=== PATIENT | male | born 1970 | race Two or more races ===

== ENCOUNTER 2019-09-12 05:26 | Emergency (ER) | payer SELFPAY ==
[~2019-09-12] VITALS: Ht 182.9 cm; Wt 172.4 kg
[2019-09-12] MEDS ORDERED: ACETAMINOPHEN 500 MG TAB PO ONE (05:45)
[2019-09-12 06:43] VITALS: BP 147/87
[2019-09-12] MEDS ORDERED: KETOROLAC TROMETH 60MG/2ML VIAL IM ONE (07:00)
== END 2019-09-12 07:55 | disposition home or self-care (01) ==
LOC: EDBD 05:26 → ER 05:26
DX: S39.012A Strain of muscle, fascia and tendon of lower back, initial encounter (principal); S76.011A Strain of muscle, fascia and tendon of right hip, initial encounter; W01.0XXA Fall on same level from slipping, tripping and stumbling without subsequent striking against object, initial encounter; Y93.89 Activity, other specified; Y99.8 Other external cause status; Y92.89 Other specified places as the place of occurrence of the external cause
CPT/HCPCS: 72100; 73502; 96372; 99283; J1885